=== PATIENT | male | born 1945 | race Caucasian/White ===

== ENCOUNTER 2017-05-11 12:29 | Emergency (ER) | payer MEDICARE, OTHER ==
[~2017-05-11] VITALS: Ht 162.6 cm; Wt 56.8 kg
[2017-05-11 12:33] VITALS: BP 117/67; PULSE 68; RESP 16; O2SAT 97
[2017-05-11 12:48] LABS: BASOPHILS % (AUTO) 0.2 % (0-3); EOSINOPHILS % (AUTO) 2.2 % (0-5); MONOCYTES % (AUTO) 8.4 % (4-12); Mean Corpuscular Hemoglobin 29.7 pg (27.0-35.0); Mean Corpuscular Volume 87.5 fL (81-100); NEUTROPHILS % (AUTO) 78.8 % (40-74); Platelet Count 267 bil/L (150-400)
[2017-05-11 13:09] LABS: Magnesium 1.9 mg/dL (1.6-2.6)
--- NOTE | 2017-05-11 13:14 | ED.REPORT ---
HPI-Abd Pain M 40 and Over Date of Service May 11, 2017 ED Provider: Aby Iavn MD Patient is a 71 year old male with a hx of kidney stones who presents to the ED via EMS complaining of severe L flank pain onset this morning that has now resolved. Associated symptoms include hematuria onset 3 days ago. 4 days ago, he had bilateral lower abdominal pain that has since resolved. Patient also reports a bout of diarrhea this morning. He denies fever, chills, vomiting, or any other symptoms. Patient describes his pain as being similar to when he has had kidney stones previously. He believes he passed a stone 4 days ago. He was given Fentanyl and Zofran by medics. Nursing Notes Stated Complaint: ABDOMINAL PAIN Chief Complaint: Male Abdominal Pain Nursing Notes Reviewed: Yes Allergies: Coded Allergies: NSAIDS (Non-Steroidal Anti-Inflamma (Verified Adverse Reaction, Severe, bleeding, 05/11/17) Uncoded Allergies: sd (Adverse Reaction, Severe, unknown, 05/11/17) Scheduled PRN oxyCODONE-Acetaminophen 5-325 mg (oxyCODONE-Acetaminophen 5-325 mg) 1 Each Tablet 0.5-1 TAB PO Q6H PRN PRN For Pain General Time Seen by MD: 13:12 Chief Complaint Flank pain left Hx Obtained From: Patient Arrived By: Ambulance Sudden in Onset?: Yes Onset Occurred: 1 - 4 hours ago Quality: Painful Radiation: : Flank left Relieved by: Prescription meds Recent Healthcare: Recent doctor visit Similar Sx Previous: Yes Risk Factors )( AAA Risk Stratification No Hypertension, No Prior AAA Risk factors reviewed Past Medical History Past Medical History Notes: PCP Chago Willis Past Medical History Kidney stones ulcerative colitis - without abdominal pain Reports: Asthma, Hyperlipidemia Past Surgical History Kidney stone removal Smoking History Unknown if Ever Smoker Social History Other Social History: Local resident Ambulatory Status Independent Review of Systems Constitutional: Denies: Chills, Fever GI: Reports: Abdominal pain, Diarrhea, Denies: Vomiting Male: Reports Flank pain, Reports Hematuria Complete sys rev & neg: except as marked. Physical Exam Initial Vital Signs Vital Signs (First) Date Time Temp Pulse Resp B/P Pulse Ox O2 Delivery O2 Flow Rate FiO2 05/11/17 12:33 36.3 68 16 117/67 97 Room Air Initial VS: Reviewed, Vital signs normal Head / Eyes: Atraumatic, Normocephalic Neck: Supple, Full range of motion Skin: Warm, Dry Neurologic: Alert, Oriented, Nonfocal Psychiatric: Mood/affect normal, Behavior normal, Normal thought content General/Constitutional: Awake, Alert, No acute distress Respiratory / Chest: Atraumatic, Breath sounds NL, Breath sounds = bilat, No respiratory distress Cardiovascular: Heart rate NL, Regular rhythm, Heart sounds NL Abdomen: Atraumatic, Soft, Non-tender Back: Full range of motion, No CVA tenderness Interpretation & Diagnostics Lab Results Interpretation Result Diagram: 05/11/17 1243 05/11/17 1243 Test 05/11/17 12:43 05/11/17 13:51 White Blood Count 13.2th/mm3 (3.8-10.1) Red Blood Count 4.95mil/mm3 (4.40-5.80) Hemoglobin 14.7g/dL (13.8-17.2) Hematocrit 43.3% (41.0-50.0) Mean Corpuscular Volume 87.5fL (81-100) Mean Corpuscular Hemoglobin 29.7pg (27.0-35.0) Mean Corpuscular Hemoglobin Concent 33.9% (32.0-37.0) Red Cell Distribution Width 13.2% (12.3-15.4) Platelet Count 267bil/L (150-400) Neutrophils (%) (Auto) 78.8% (40-74) Lymphocytes (%) (Auto) 9.9% (14-46) Monocytes (%) (Auto) 8.4% (4-12) Eosinophils (%) (Auto) 2.2% (0-5) Basophils (%) (Auto) 0.2% (0-3) Sodium Level 141mEq/L (134-144) Potassium Level 4.2mEq/L (3.5-5.2) Chloride Level 104mEq/L (97-108) Carbon Dioxide Level 22mmol/L (18-29) Blood Urea Nitrogen 28mg/dL (8-27) Creatinine 0.97mg/dL (0.76-1.27) Estimat Glomerular Filtration Rate 81mL/min (>59) Glucose Level 112mg/dL (60-99) Calcium Level 9.4mg/dL (8.5-10.1) Magnesium Level 1.9mg/dL (1.6-2.6) Total Bilirubin 0.6mg/dL (0.0-1.2) Aspartate Amino Transf (AST/SGOT) 24U/L (0-50) Alanine Aminotransferase (ALT/SGPT) 23U/L (0-44) Alkaline Phosphatase 106U/L (25-160) Total Protein 6.9g/dL (6.4-8.4) Albumin 4.3g/dL (3.4-5.0) Urine Color Yellow (YELLOW) Urine Appearance Hazy (CLEAR,HAZY) Urine pH 5.5 (5.0-8.0) Urine Specific [place] 1.020 (1.003-1.035) Urine Protein Tracemg/dL (NEG,TRACE) Urine Glucose (UA) Negativemg/dL (NEGATIVE) Urine Ketones 15mg/dL (NEGATIVE) Urine Occult Blood Large (NEGATIVE) Urine Nitrite Negative (NEGATIVE) Urine Bilirubin Negative (NEGATIVE) Urine Urobilinogen Normalmg/dL (NORMAL) Urine Leukocyte Esterase Negative (NEGATIVE) Urine RBC >50/hpf (0-2) Urine WBC 0-5/hpf (0-5) Urine Epithelial Cells Occasional/hpf (NONE-MOD) Urine Crystals None seen (NONE SEEN) Urine Bacteria Few/hpf (NONE-FEW) Urine Hyaline Casts None/lpf (NONE) Urine Granular Casts None seen (NONE SEEN) Urine Waxy Casts None seen (NONE SEEN) Urine Red Blood Cell Casts None seen (NONE SEEN) Urine White Blood Cell Casts None seen (NONE SEEN) Urine Mucus Present (None Seen) Urine Trichomonas None seen (NONE SEEN) Urine Yeast None (NONE SEEN) Urinalysis Comment None Urine Culture Reflexed Not indicated Lab Results Interpretation: ua dip: blood only Re-Eval/Medical Decision Time of Eval: 13:34 )( Re-Eval Abdomen: Soft Re-Evaluation/Progress Note: Discussed plan for discharge provided UA is consistent with kidney stones. Patient understands and agrees with plan. All questions addressed at this time. Time of Eval: 14:49 Re-Evaluation/Progress Note: Discussed plan for discharge. Patient understands and agrees with plan. All questions addressed at this time. Counseled Regarding: Diagnosis, Need for follow-up, When/why to return to ED Discharge & Departure Primary Impression: Kidney stone Disposition: Home Vital Signs - All Vital Signs Date Time Temp Pulse Resp B/P Pulse Ox O2 Delivery O2 Flow Rate FiO2 05/11/17 15:22 58 110/61 99 05/11/17 12:33 36.3 68 16 117/67 97 Room Air )( All Prior VS Reviewed: Yes Condition: Stable Patient Instructions: Kidney Stones (ED) Additional Instructions: Thank you for coming to the emergency department. I believe that your symptoms are related to kidney stones. If your pain is worse, you develop fevers, or your pain becomes uncontrollable, return to the emergency department. If you feel your pain building, it is safe to take half to a whole Percocet. Do not drive, drink alcohol, or take acetaminophen while taking Percocet. Call your primary doctor to schedule a follow up appointment within the next week. I hope this episode is over! Referrals: OTHER,PHYSICIAN Scribe Attestation Portions of this note were transcribed by Sandra Obregon. I, Dr. Ivan personally performed the history, physical exam and medical decision-making; I reviewed and confirmed the accuracy of the information in the transcribed note. Signed: Noemi Strickland, 05/11/17 Aby Ivan MD May 11, 2017 13:14 SANDRA OBREGON May 11, 2017 13:27
[2017-05-11 14:06] LABS: APPEARANCE,URINE HAZY (CLEAR,HAZY); COLOR,URINE YELLOW (YELLOW)
[2017-05-11 14:07] LABS: OCCULT BLOOD,URINE LARGE (NEGATIVE); PH,URINE 5.5 (5.0-8.0); UROBILINOGEN,URINE NORMAL (NORMAL)
[2017-05-11] MEDS ORDERED: OXYC1TAB24 PO (14:47)
[2017-05-11 15:22] VITALS: BP 110/61; PULSE 58; O2SAT 99
[2017-05-11 15:26] VITALS: BP 110/61; PULSE 58; RESP 16; O2SAT 99
== END 2017-05-11 15:27 | disposition home or self-care (01) ==
LOC: EDBD 12:29 → SED 12:29
DX: N20.0 Calculus of kidney (principal); J45.909 Unspecified asthma, uncomplicated; E78.5 Hyperlipidemia, unspecified; Z87.442 Personal history of urinary calculi; Z88.6 Allergy status to analgesic agent